=== PATIENT | male | born 1960 | race Caucasian/White ===

== ENCOUNTER 2016-08-21 08:05 | Day surgery (SDC) | payer OTHER ==
--- NOTE | 2016-08-20 21:57 | GHP ---
[f rep st] PREOP HISTORY AND PHYSICAL HISTORY OF PRESENT ILLNESS: Patient presented to [facility] in July of 2016 with a chief complaint of severe arthritis and wear and tear on his great toes. He noticed some very large bumps on the medial aspect of both great toes. He wanted to know what his treatment options were. He is having difficulty fitting into shoes. Toes are progressively getting worse over time. He has noticed large bumps on the dorsal aspect of both toes. He wanted to get both great toes taken care of on a permanent basis. He has tried arch supports, change in insoles, decreased activity, anti-inflammatories , all of which failed to alleviate his symptoms on a consistent basis. The patient is a healthy active 55-year-old male. He has had no significant health problems in his past medical history. He has had an appendectomy without complication or problems to anesthesia. He is 6 feet 2 inches tall, weighs 290 pounds. ALLERGIES: Penicillin and sulfa, both cause a rash. FAMILY HISTORY: Bunions on his mother's side. Other than that, no other family history or medical problems. SOCIAL HISTORY: He denies ever using tobacco products and less than 2 ounces per week on alcohol. MEDICATIONS: He is currently taking no prescription medications. At his preop appointment, he was alert and oriented. He denied any headaches, fever, chills, vision, hearing, nasal, or throat problems. He denied any cardiac arrhythmias, chest pain, shortness of breath, GI distress, neurologic, dermatologic, or other musculoskeletal problems. PHYSICAL EXAM: EXTREMITIES: Looking at the lower extremity, he had normal pulses, 2+ over 4 on his dorsal and posterior tibial arteries. Capillary flow was less than 5 seconds to digits x10. NEUROLOGIC: He had normal sharp, dull, light touch. Proprioception intact and symmetric to both lower extremities to the digital level. SKIN: Normal temperature, texture, turgor. Normal hair distribution to both lower extremities. MUSCULOSKELETAL: Evaluation showed 5/5 manual muscle testing to the extrinsic as well as intrinsic muscles of both extremities. No evidence of weakness or loss of strength bilateral. He had limited dorsiflexion to about 15-20 degrees of dorsiflexion from neutral on both great toes. X-rays revealed severe osteophytic and bone spurs around the great toe joints on both feet with the limited range of motion and significant pain on palpation of the same joints. ASSESSMENT: Hallux limitus deformity, bilateral. PLAN: At this point, I recommended surgical correction of the area, clean up the joint with stepdown and decompression osteotomies bilateral. At his preop appointment, we discussed risks and complications, including residual pain, delayed healing. Patient understood. Consent form was signed and witnessed. He was given oral and written postop instructions, along with a prescription for pain medications, Percocet 10/325 #40 one tab p.o. q.4-6 h. p.r.n. pain. He was also given a prescription for Phenergan 12.5 mg #40 one tab p.o. q.6 h. p.r.n. nausea. He will be followed up x3 days postop at [facility]. He was given my cell phone number for 24-hour call should he have any problems or questions postoperatively. /[id number]/MODL MTDD
[~2016-08-21 08:05] MED LIST: BUPIVACAINE 0.25% 30 ML SDV ONE; LIDO/EPI 1% **Not for Epidural 20 ML MDV ONE; ceFAZolin 1 GM/5 ML SYR ONE; ceFAZolin 2 GM/DEXTROSE 100 ML IV ONE
[2016-08-21] MEDS ORDERED: LIDOCAINE 1% 5 ML SDV ONE (08:36)
[2016-08-21] MEDS ORDERED: LR 1,000 ML IV ONE (08:58)
[2016-08-21] MEDS ORDERED: LIDOCAINE 1% 5 ML SDV ID PRN (08:58)
[2016-08-21] MEDS ORDERED: fentaNYL 100 MCG/2 ML INJ ONE ×2 (08:58→11:51)
[2016-08-21] MEDS ORDERED: ceFAZolin 2 GM/DEXTROSE 100 ML IV ONE (09:00)
[2016-08-21] MEDS ORDERED: MIDAZOLAM 2 MG/2 ML VIAL ONE ×3 (09:38→11:51)
[2016-08-21] MEDS ORDERED: PROPOFOL/EMULSION 500 MG/50 ML BOTTLE IV ONE ×2 (09:41→10:21)
[2016-08-21] MEDS ORDERED: ceFAZolin 1 GM/5 ML SYR ONE (11:24)
[2016-08-21] MEDS ORDERED: LIDO/EPI 1% **Not for Epidural 20 ML MDV ONE (11:32)
[2016-08-21] MEDS ORDERED: ONDANSETRON 4 MG/2 ML VIAL ONE (12:30)
--- NOTE | 2016-08-27 14:12 | GOP ---
[f rep st] OPERATIVE REPORT DATE OF OPERATION: 08/21/2016 SURGEON: Chris Stout DPM PREOPERATIVE DIAGNOSIS: Hallux limitus deformity, bilateral. POSTOPERATIVE DIAGNOSIS: Hallux limitus deformity, bilateral. PROCEDURE PERFORMED: 1. Modified Braden bunionectomy with stepdown osteotomy and screw fixation. 2. Dale osteotomy with screw fixation. FINDINGS: ESTIMATED BLOOD LOSS: Less than 10 cc. DESCRIPTION OF PROCEDURE: The patient was taken to the operating room, placed supine position. Aft er local and MAC anesthesia, both extremities were elevated, prepped and draped in the usual sterile OR fashion, achieving a sterile field about the entire distal aspect of the extremities. Attention was directed to the right lower extremity. After elevating and exsanguinating, tourniquet was inflated. Attention was directed to the dorsal aspect of the great toe joint. Approximately a 3-4 inch linear incision was made dorsally over the great toe joint, taking care to preserve the ne urovascular status to the area. Superficial vessels were clamped and bovied as necessary. The caps ule was entered via sharp linear incision. There were multiple bony fragments on the dorsal aspect of the joint that were actually loose and these were removed from the operative site. There was sev ere dorsal lipping and spurring on the metatarsal, as well as base of the proximal phalanx, and thes e were all removed utilizing a bone saw and rasped smooth utilizing a rotary bur. At this point, it was noticed that the top half of the metatarsal head was completely devoid of cartilage. A 0.035 K-wire was placed through the metaphysis of the metatarsal, orienting the K-wire such that i t was from dorsal medial to plantar lateral. Utilizing this K-wire as an apex for the V or chevron- type osteotomy, this osteotomy was carried out with a little bit longer dorsal lateral wing. The me tatarsal was shifted plantarly and slightly laterally, and impacted upon itself and held fast with t he same 0.035 K-wire as temporary fixation. Utilizing AO technique, a single 3.0 mm Osteomed lag sc rew was placed through the dorsal lateral wing of the osteotomy and retrograded back into the metata rsal with excellent compression noted. The patient's intraoperative bone density was very good. The K-wire was removed from the operative site. Redundant bone was removed dorsally, as well as medial ly and rasped smooth utilizing a rotary bur. The area was flushed copiously with dilute antibiotic solution. The great toe was taken through range of motion. It was deemed necessary to do a seconda ry procedure on the great toe as it was pushing into the 2nd toe rather severely. Attention was directed to the dorsal aspect of the proximal phalanx on the right great toe. A wedge osteotomy was carried out with the apex proximal lateral. This wedge of bone was removed, and a fr acture reduction clamp was utilized to transfer the great toe away from the 2nd toe and holding the osteotomy temporarily. Utilizing AO technique, a single 3.0 mm lag screw was then placed proximal m edial to distal lateral perpendicular to the osteotomy site in the proximal phalanx with excellent c ompression noted intraoperatively. The fracture reduction clamp was removed from the operative site . The area was flushed copiously once again with dilute antibiotic solution and the great toe was t aken through range of motion and deemed to be anatomically aligned. There was excellent clearing of the proximal phalanx over the metatarsal intraoperatively. I did take the great toe through a rang e of motion. A 0.035 K-wire was utilized to drill small holes into the metatarsal head to promote fibrocartilage formation postoperatively. Again, the area was flushed copiously with dilute antibiotic solution. Redundant capsule was capsulotomized medially. The capsule was then reapproximated utilizing 3-0 Beto ryl in a simple interrupted suture. Periosteum was reapproximated utilizing 4-0 Vicryl in a horizon karely mattress and simple interrupted suture. Subcu closure was carried out via 4-0 Vicryl in a horiz ontal mattress suture and skin closure was carried out via 4-0 Prolene in a running subcuticular sti tch. The incision was reinforced with Mastisol and Steri-Strips. Adaptic, sterile 4x4s, Celina, and Coban were utilized as a dressing. The tourniquet was released. All digits returned to a uniform a nd pink color immediately with normal capillary flow noted intraoperatively. At this point, attention was directed to the left foot, where essentially the same procedure was car ried out. On the left foot, there were significantly larger and 1 more dorsal fractured loose bone from the wear and tear on the joint that was noted in comparison to the right. Otherwise, the dorsa l half of the metatarsal head was still devoid of cartilage. Again, the metatarsal head was drilled with small holes utilizing a K-wire to promote fibrocartilage formation. The area was flushed copi ously with dilute antibiotic solution prior to closure. Similar closure was carried out on the left foot and again, the left great toe was taken through range of motion intraoperatively and before cl osure of the wound to make sure that the proximal phalanx was clearing the metatarsal head, and to m dung sure there was no dorsal jamming of the joint. Again, upon release of the tourniquet on the lef t foot, all digits returned to a uniform and pink color with normal capillary flow. A sterile dress ing was applied. The patient went into recovery in a satisfactory state with all vital signs stable. His prognosis i s very good for rapid recovery, and he will be followed up x3 days postop at [facility]. COMPLICATIONS: There were no complications. DRAINS: No drains were placed into the operative site. HEMOSTASIS: With a tourniquet inflated to 250 mmHg for a total tourniquet time of approximately 70 minutes on each foot. /[id number]/MODL
== END 2016-08-21 14:16 | disposition home or self-care (01) ==
LOC: FSGY 08:05
PROVIDERS: ATTEND Podiatrist
PROC: 0SNN0ZZ Release Left Metatarsal-Phalangeal Joint, Open Approach (ICD-10-PCS; principal; 2016-08-21 09:15)
PROC: 0SNM0ZZ Release Right Metatarsal-Phalangeal Joint, Open Approach (ICD-10-PCS; principal; 2016-08-21 09:15)
DX: M19.071 Primary osteoarthritis, right ankle and foot (principal); M19.072 Primary osteoarthritis, left ankle and foot; M20.21 Hallux rigidus, right foot; M20.22 Hallux rigidus, left foot; Z88.0 Allergy status to penicillin; Z88.2 Allergy status to sulfonamides; M20.5X1 Other deformities of toe(s) (acquired), right foot; M20.5X2 Other deformities of toe(s) (acquired), left foot
CPT/HCPCS: 28289; C1769; C1713; J0690; J2250; J2405; J2704; J3010

== ENCOUNTER 2018-10-13 07:54 | Day surgery (SDC) | payer OTHER ==
[2018-10-13] MEDS ORDERED: BUPIVACAINE 0.5% 30 ML SDV ONE ×2 (08:38→08:58)
[2018-10-13] MEDS ORDERED: LR 1,000 ML IV ONE (08:49)
[2018-10-13] MEDS ORDERED: MIDAZOLAM 2 MG/2 ML VIAL IVP ONE (09:08)
--- NOTE | 2018-10-13 09:09 | PDANEPAE ---
ANE Past Medical History - Cardiovascular History Hx Hypertension: No Hx Arrhythmias: No Hx Chest Pain: No Hx Coronary Artery / Peripheral Vascular Disease: No Hx CHF / Valvular Disease: No Hx Palpitations: No - Pulmonary History Hx COPD: No Hx Asthma/Reactive Airway Disease: No Hx Recent Upper Respiratory Infection: No Hx Oxygen in Use at Home: No Hx Sleep Apnea: No Sleep Apnea Screening Result - Last Documented: Negative - Neurologic History Hx Cerebrovascular Accident: No Hx Seizures: No Hx Dementia: No Neurologic History Comment: OPTICAL MIGRAINES - Endocrine History Hx Diabetes: No - Renal History Hx Renal Disorders: No - Liver History Hx Hepatic Disorders: No - Neurological & Psychiatric Hx Hx Neurological and Psychiatric Disorders: No - Cancer History Hx Cancer: No - Congenital Disorder History Hx Congenital Disorders: No - GI History GERD: no Hx Gastrointestinal Disorders: No - Other Health History Other Health History: NEG - Chronic Pain History Chronic Pain: No - Surgical History Prior Surgeries: BUNIONECTOMIES CHELSEY. TONSILLECTOMY. APPENDECTOMY ANE Review of Systems Review of Systems: - Exercise capacity METS (RN): 6 METS ANE Patient History - Allergies Allergies/Adverse Reactions: Penicillins Allergy (Verified 08/10/16 11:23) RASH/HIVES Sulfa (Sulfonamide Antibiotics) Allergy (Verified 08/10/16 11:22) RASH/HIVES - Home Medications Home medications: home medication list seen and reviewed Home Medications: Aleve 08/10/16 [Last Taken 1 Week Ago ~10/06/18] Herbals/Supplements -Info Only 08/10/16 [Last Taken 1 Week Ago ~10/06/18] - NPO status NPO Since - Liquids (Date): 10/12/18 NPO Since - Liquids (Time): 20:30 NPO Since - Solids (Date): 10/12/18 NPO Since - Solids (Time): 20:30 - Anes Hx Anes Hx: no prior problems - Smoking Hx Smoking Status: Former smoker - Family Anes Hx Family Hx Anesthesia Complications: NEG ANE Labs/Vital Signs - Vital Signs Blood Pressure: 128/98 Heart Rate: 63 Respiratory Rate: 16 O2 Sat (%): 95 Height: 187.96 cm Weight: 127.006 kg ANE Physical Exam - Airway Neck exam: FROM Mallampati Score: Class 2 Mouth exam: normal dental/mouth exam - Pulmonary Pulmonary: clear to auscultation - ASA Status ASA Status: II ANE Anesthesia Plan Anesthesia Plan: GA w LMA
[2018-10-13] MEDS ORDERED: fentaNYL 100 MCG/2 ML INJ ONE ×2 (09:10→10:45)
[2018-10-13] MEDS ORDERED: PROPOFOL 200 MG/20 ML VIAL ONE (09:10)
[2018-10-13] MEDS ORDERED: METOCLOPRAMIDE 10 MG/2 ML VIAL ONE (09:11)
[2018-10-13] MEDS ORDERED: RANITIDINE 50 MG/2 ML VIAL ONE (09:11)
--- NOTE | 2018-10-13 09:32 | PDHPUP ---
History & Physical Update H&P update statement: This history and physical update is based on an assessment of the patient which was completed after admission or registration (within 24 hours), but prior to the surgery/procedure. H&P update: H&P reviewed & patient examined (normal heart and lung exam) H&P changes: No changes in H and P. Resp exam was normal with good air entry. Cardiovascular exam shows normal heart sounds,reg rhythm and rate
[2018-10-13] MEDS ORDERED: ONDANSETRON 4 MG/2 ML VIAL ONE (10:28)
[2018-10-13] MEDS ORDERED: KETOROLAC 30 MG/1 ML SDV ONE (10:28)
[2018-10-13] MEDS ORDERED: NALOXONE HCL 0.4 MG/ML INJ IVP PRN (10:30)
[2018-10-13] MEDS ORDERED: oxyCODONE IR 5 MG TAB PO PRN (10:30)
[2018-10-13] MEDS ORDERED: fentaNYL 100 MCG/2 ML INJ IVP PRN (10:30)
[2018-10-13] MEDS ORDERED: MEPERIDINE 25 MG/0.5 ML AMP IVP PRN (10:30)
[2018-10-13] MEDS ORDERED: ALBUTEROL 3 ML DEYVIAL IH PRN (10:30)
[2018-10-13] MEDS ORDERED: ACETAMINOPHEN 500 MG TAB PO PRN (10:30)
[2018-10-13] MEDS ORDERED: ONDANSETRON 4 MG/2 ML VIAL IVP PRN (10:30)
[2018-10-13] MEDS ORDERED: PROMETHAZINE HCL 25 MG/ML INJ IVP PRN (10:30)
[2018-10-13] MEDS ORDERED: HYDROmorphONE/DILAUDID 1 MG/ML INJ IVP PRN (10:30)
[2018-10-13] MEDS ORDERED: METOCLOPRAMIDE 10 MG/2 ML VIAL IVP PRN (10:30)
[2018-10-13] MEDS ORDERED: DEXAMETHASONE 4 MG/ML VIAL IVP PRN (10:30)
[2018-10-13] MEDS ORDERED: LR 500 ML IV PRN (10:30)
[2018-10-13] MEDS ORDERED: ceFAZolin 1 GM VIAL ONE ×3 (10:37→10:38)
--- NOTE | 2018-10-13 11:06 | POSTOPPROG ---
Post Op Note Date of Operation: 10/13/18 Surgeon: Samuel Estrada Shoe Cementer: none Anesthesiologist: Amina Caputo Anesthesia: Epidural Pre-op Diagnosis: Left wrist cartilage injury and ulnar positive variant Post-op Diagnosis: same Indication: wrist pain Procedure: Diag left wrist arthroscopy then open ular wafer shortening and TFCC repair Inf/Abcess present in the surg proc area at time of surgery?: No Depth: Deep Incisional (Fascial) EBL: Minimal Total fluids administered: 600cc Complications: none Specimen(s): none
--- NOTE | 2018-10-13 11:55 | GOP ---
[f rep st] OPERATIVE REPORT DATE OF OPERATION: 10/13/2018 SURGEON: Samuel Estrada MD PREOPERATIVE DIAGNOSIS: Left wrist triangular cartilage, lunotriquetral ligament injuries and ulnar positive variance. POSTOPERATIVE DIAGNOSIS: Left wrist triangular cartilage, lunotriquetral ligament injuries and ulnar positive variance. PROCEDURE PERFORMED: Proposed operation was left wrist arthroscopy with triangular cartilage debride ment, lunotriquetral debridement, and ulnar wafer shortening. Operation performed: Diagnostic arthr oscopy, then open ulnar wafer shortening, triangular cartilage and lunotriquetral ligament debridemen t, and then triangular cartilage suture repair. FINDINGS: INDICATIONS: This patient had persistent ulnar-sided wrist pain, significant pathology seen on MRI, and evidence of an ulnar positive variance on plain films. It was felt that suture repair of the car tilage and ulnar wafer shortening were needed. DESCRIPTION OF PROCEDURE: Under general anesthesia, the patient's left arm was prepped and draped in the usual fashion, and arm tourniquet was applied at 250 mmHg. A 3-4 portal was used for arthroscop y, and the arthroscopy revealed that there was very extensive ulnar-sided wrist pathology. The radia l styloid area had some fraying of the capsule. The scapholunate ligament had a little bit of attenu ation of the palmar portion, but the ulnar-sided pathology indicated that we needed to make an incisi on for the surgical repair. The arthroscopic equipment was all removed, the 3-4 portal was closed, and then, an incision was made using a C-shaped incision based palmarly at the ulnar aspect of the wrist. The skin flap was elevat ed palmarly. Two branches of the dorsal sensory ulnar nerve were protected, and vascular loop was us ed to hold those out of the way. The 6th dorsal compartment was opened, and it was seen that the ext ensor carpi ulnaris tendon, which had shown tendinopathy on MRI, had extensive scar tissue around the tendon, and this was associated with some inflammatory tenosynovium. The tendon, once cleansed, was reflected. The floor of the 6th dorsal compartment was torn. That was opened along the tear, and t he capsule and periosteum were elevated from the ulnar aspect of the wrist. Triangular cartilage was badly torn from the ulnar aspect of the wrist, though the cartilage still had some good underlying l igamentum subcruentum. The triangular cartilage was debrided back to healthy smooth tissue. The uln ar styloid was excised creating a nice smooth surface, and then, using a sagittal saw, a wafer of dis karely ulna was excised, and using the fluoroscope, it was assured that adequate ulna was removed. Then , the triangular cartilage was suture repaired to the ulnar aspect of the wrist using 4-0 PDS. The s uture repair went to periosteum, and then, the ulnar capsule also was repaired correcting the tear th at was in the floor of the 6th dorsal compartment. Stability of the distal radioulnar joint was exce llent, and then, the 6th dorsal compartment was repaired using a running simple suture of 4-0 PDS wit h intermittent ties. The dorsal sensory branches of the ulnar nerve were laid back in place, and the n, the skin was closed with horizontal mattress sutures of 5-0 Prolene. A bulky soft pressure dressi ng was applied, followed by fiberglass sugar-tong splint held in place with Juan bandages. Tourniquet deflation resulted in immediate pinking of the digits. He was brought to the recovery area where de tailed postoperative instructions were given prior to discharge. A prescription for Roper and Keflex was provided. He had been given 3 g of Ancef intravenously at surgery. His allergy to penicillin a nd sulfa was noted. The penicillin allergy was a rash only. Followup arrangements in the office for about a week postop for dressing and suture removal and then a cast application in a Epps-style c ast for 3 additional weeks. /[id number]/MODL
[2018-10-13 11:58] VITALS: BP 107/83
--- NOTE | 2018-10-13 12:01 | POSTANESTH ---
Post Anesthetic Evaluation Cardiovascular Status: Normal, Stable Respiratory Status: Normal, Stable Level of Consciousness/Mental Status: Can Participate in Eval Pain Control: Adequate, Prn Tx Ordered Nausea/Vomiting Control: Adequate, Prn Tx Ordered Complications Possibly Related to Anesthesia: None Noted
[2018-10-13] MEDS ORDERED: oxyCODONE IR 5 MG TAB ONE (12:06)
== END 2018-10-13 12:34 | disposition home or self-care (01) ==
LOC: FSGY 07:54
PROVIDERS: ATTEND Specialist
PROC: 0MB64ZZ Excision of Left Wrist Bursa and Ligament, Percutaneous Endoscopic Approach (ICD-10-PCS; principal; 2018-10-13 09:15)
PROC: 0PB Upper Bones, Excision (ICD-10-PCS; principal; 2018-10-13 09:15)
PROC: 0RQ Upper Joints, Repair (ICD-10-PCS; principal; 2018-10-13 09:15)
DX: S63.592A Other specified sprain of left wrist, initial encounter (principal); X58.XXXA Exposure to other specified factors, initial encounter
CPT/HCPCS: J0690; J1885; J2250; J2405; J2704; J2765; J2780; J3010